=== PATIENT | female | born 1995 | race Caucasian/White ===

== ENCOUNTER 2017-07-05 01:25 | Emergency (ER) | payer BC ==
[2017-07-05] MEDS ORDERED: ALPRAZolam TAB* 0.5 MG PO ONE (02:20)
[2017-07-05 02:35] LABS: ABS Basophils 0 10^3/ul (0-0.2); ABS Eosinophils 0.1 10^3/ul (0-0.6); ABS Lymphocytes 1.8 10^3/ul (1.0-4.8); ABS Monocytes 0.4 10^3/ul (0-0.8); ABS Neutrophils 4.1 10^3/ul (1.5-7.7); ABS Nucleated RBC 0 10^3/ul; Eosinophil % 1.3 % (0-6); Hematocrit 36 % (35-47); Lymphocyte % 27.9 % (25-47); Mean Corpuscular HGB Conc 33 g/dl (31-36); Mean Corpuscular Hemoglobin 30 pg (27-31); Mean Corpuscular Volume 91 fL (80-97); Mean Platelet Volume 8.2 um3 (7.4-10.4); Nucleated Red Blood Cells % 0; Platelet Count 166 10^3/ul (150-450); Red Blood Count 3.99 10^6/ul (4.0-5.4); Red Cell Distribution Width 12 % (10.5-15); White Blood Count 6.5 10^3/ul (3.5-10.8)
[2017-07-05 02:51] LABS: EGFR Non-African American 97.5 (>60)
[2017-07-05] MEDS ORDERED: Potassium Chlor TAB* 20 MEQ TAB.ER PO ONE (02:58)
[2017-07-05 03:14] VITALS: BP 107/76
--- NOTE | 2017-07-05 03:20 | ED ---
Gin Malcolm Emily, scribed for Lillian Ramirez MD on 07/05/17 at 0207 . Palpitations / Dysrhythmia - HPI Summary HPI Summary: This patient is a 21 year old F presenting to [facility] with a chief complaint of palpitations that began [employer]. The patient rates the pain 0/10 in severity. Symptoms aggravated by nothing. Symptoms alleviated by nothing. Patient reports dry mouth and abd pain (resolved). Patient denies vomiting. Pt reports that she is worried these symptoms are an allergic reaction to an herbal supplement for IBS symptoms that she took earlier. - History of Current Complaint Chief Complaint: EDDysrhythmPalp Time Seen by Provider: 07/05/17 02:00 Hx Obtained From: Patient Onset/Duration: Sudden Onset, Lasting Hours, Still Present Timing: Constant Severity Initially: Mild Severity Currently: Mild Aggravating: Nothing Alleviating: Nothing - Allergy/Home Medications Allergies/Adverse Reactions: Allergies Allergy/AdvReac Type Severity Reaction Status Date / Time No Known Allergies Allergy Verified 05/13/15 18:38 PMH/Surg Hx/FS Hx/Imm Hx Previously Healthy: No Sensory History: Reports: Hx Contacts or Glasses Opthamlomology History: Reports: Hx Contacts or Glasses Psychiatric History: Denies: Hx Eating Disorder, Hx of Violent Episodes Against Others Infectious Disease History: No Infectious Disease History: Denies: Traveled Outside the [place] in Last 30 Days - Family History Known Family History: Positive: Unknown - Social History Occupation: Employed Full-time Lives: Alone Alcohol Use: Occasionally Substance Use Type: Reports: Heroin Substance Use Comment - Amount & Last Used: POSSIBLE AMPHETAMINES Smoking Status (MU): Current Some Day Smoker Review of Systems Positive: Other - Positive dry mouth Positive: Palpitations Positive: Abdominal Pain. Negative: Vomiting All Other Systems Reviewed And Are Negative: Yes Physical Exam - Summary Physical Exam Summary: VITAL SIGNS: Reviewed. GENERAL: ~Patient is a well-developed and nourished female who is lying comfortable in the stretcher. Patient is not in any acute respiratory distress. HEAD AND FACE: No signs of trauma. No ecchymosis, hematomas or skull depressions. No sinus tenderness. EYES: PERRLA, EOMI x 2, No injected conjunctiva, no nystagmus. EARS: Hearing grossly intact. Ear canals and tympanic membranes are within normal limits. MOUTH: Oropharynx within normal limits. NECK: Supple, trachea is midline, no adenopathy, no JVD, no carotid bruit, no c- spine tenderness, neck with full ROM. CHEST: Symmetric, no tenderness at palpation LUNGS: Clear to auscultation bilaterally. No wheezing or crackles. CVS: Regular rate and rhythm, S1 and S2 present, no murmurs or gallops appreciated. ABDOMEN: Soft, non-tender. No signs of distention. No rebound no guarding, and no masses palpated. Bowel sounds are normal. EXTREMITIES: FROM in all major joints, no edema, no cyanosis or clubbing. NEURO: Alert and oriented x 3. No acute neurological deficits. Speech is normal and follows commands. SKIN: Dry and warm Triage Information Reviewed: Yes Vital Signs On Initial Exam: Initial Vitals Temp Pulse Resp BP Pulse Ox 99.4 F 98 18 128/85 99 07/05/17 01:38 07/05/17 01:38 07/05/17 01:38 07/05/17 01:38 07/05/17 01:38 Vital Signs Reviewed: Yes Diagnostics - Vital Signs Vital Signs Temp Pulse Resp BP Pulse Ox 07/05/17 01:38 99.4 F 98 18 128/85 99 - Laboratory Result Diagrams: 07/05/17 02:26 07/05/17 02:26 Lab Statement: Any lab studies that have been ordered have been reviewed, and results considered in the medical decision making process. - EKG 0149 Cardiac Rate: NL EKG Rhythm: Sinus Rhythm - 62 BPM EKG Interpretation: Nml axis. Nml intervals. No ischemic changes Course/Dx - Course Course Of Treatment: This patient is a 21 year old F presenting to [facility] with a chief complaint of palpitations that began [employer]. EKG was unremarkable. Pt will be discharged home with follow up from PCP. Pt is agreeable with this plan. - Diagnoses Provider Diagnoses: Anxiety Discharge - Sign-Out/Discharge Documenting (check all that apply): Discharge/Admit/Transfer - Discharge home - Discharge Plan Condition: Stable Disposition: HOME Patient Education Materials: Anxiety (ED) Referrals: [facility] [Outside] - 3 Days Additional Instructions: RETURN TO THE EMERGENCY DEPARTMENT FOR NEW OR WORSENING SYMPTOMS The documentation as recorded by the Gin agudelo Emily accurately reflects the service I personally performed and the decisions made by Jmaes baker Abdul, MD.
== END 2017-07-05 03:21 | disposition home or self-care (01) ==
LOC: ED 01:25
DX: F41.9 Anxiety disorder, unspecified (principal); R00.2 Palpitations; Z72.0 Tobacco use
CPT/HCPCS: 36415; 80053; 85025; 93005; 99283; A9270-GY